=== PATIENT | female | born 1970 | race American Indian/Alaskan Native ===

== ENCOUNTER 2017-04-21 16:41 | Emergency (ER) | payer OTHER ==
[2017-04-21 18:50] LABS: Bilirubin,Urine NEG (Negative); Blood,Urine NEG (Negative); Ketones,Urine NEG (Negative); Leukocyte Esterase,Urine NEG (Negative); Mucus,Urine 2+ /HPF; Nitrite,Urine NEG (Negative); Protein,Urine <15 mg/dL mg/dL (Negative)
--- NOTE | 2017-04-21 21:09 | Emergency Department Report ---
ED Female HPI - General Chief complaint: Urogenital-Female Stated complaint: VAG DISCHARGE/ITCHING Time Seen by Provider: 04/21/17 20:27 Source: patient Mode of arrival: Ambulatory Limitations: No Limitations - History of Present Illness Initial comments: 46-year-old female past medical history recurrent BV presents with complaint of increased vaginal discharge. Denies any bleeding denies any abdominal pain states she has had BV 6 times within the last year. Denies any fever chills nausea or vomiting MD Complaint: vaginal discharge Onset/Timin -: days(s) Radiation: non-radiating, LLQ Improves with: none Are you Now?: No - Related Data Previous Rx's Medication Instructions Recorded Last Taken Type metroNIDAZOLE [Flagyl] 500 mg PO Q12HR #14 tab 09/18/16 Unknown Rx metroNIDAZOLE [Flagyl TAB] 500 mg PO Q12HR #14 tab 04/21/17 Unknown Rx Allergies Allergy/AdvReac Type Severity Reaction Status Date / Time erythromycin base Allergy Hives Verified 04/21/17 17:00 ED Review of Systems ROS: Stated complaint: VAG DISCHARGE/ITCHING Other details as noted in HPI Constitutional: denies: chills, fever Eyes: denies: eye pain, eye discharge, vision change ENT: denies: ear pain, throat pain Respiratory: denies: cough, shortness of breath, wheezing Cardiovascular: denies: chest pain, palpitations Endocrine: no symptoms reported Gastrointestinal: denies: abdominal pain, nausea, diarrhea Genitourinary: denies: urgency, dysuria, discharge Musculoskeletal: denies: back pain, joint swelling, arthralgia Skin: denies: rash, lesions Neurological: denies: headache, weakness, paresthesias Psychiatric: denies: anxiety, depression Hematological/Lymphatic: denies: easy bleeding, easy bruising ED Past Medical Hx - Past Medical History Previous Medical History?: No - Surgical History Additional Surgical History: C/S x3, Gastric bypass - Social History Smoking Status: Never Smoker Substance Use Type: Alcohol - Medications Home Medications: Home Medications Medication Instructions Recorded Confirmed Last Taken Type metroNIDAZOLE [Flagyl] 500 mg PO Q12HR #14 tab 09/18/16 Unknown Rx metroNIDAZOLE [Flagyl TAB] 500 mg PO Q12HR #14 tab 04/21/17 Unknown Rx ED Physical Exam - General Limitations: No Limitations General appearance: alert, in no apparent distress - Head Head exam: Present: atraumatic, normocephalic - Eye Eye exam: Present: normal appearance, PERRL, EOMI - ENT ENT exam: Present: mucous membranes moist - Neck Neck exam: Present: normal inspection, full ROM - Respiratory Respiratory exam: Present: normal lung sounds bilaterally. Absent: respiratory distress - Cardiovascular Cardiovascular Exam: Present: regular rate, normal rhythm. Absent: systolic murmur, diastolic murmur, rubs, gallop - GI/Abdominal GI/Abdominal exam: Present: soft, normal bowel sounds - External exam: Present: normal external exam Speculum exam: Present: vaginal discharge (whitish thick vaginal discharge) Bi-manual exam: Present: normal bi-manual exam - Extremities Exam Extremities exam: Present: normal inspection - Back Exam Back exam: Present: normal inspection, full ROM - Neurological Exam Neurological exam: Present: alert, oriented X3, CN II-XII intact, normal gait - Psychiatric Psychiatric exam: Present: normal affect, normal mood - Skin Skin exam: Present: warm, dry, intact, normal color. Absent: rash ED Course Vital Signs 04/21/17 17:00 Temperature 98.1 F Pulse Rate 70 Respiratory 16 Rate Blood Pressure 138/87 O2 Sat by Pulse 100 Oximetry ED Medical Decision Making - Medical Decision Making A/P: Vaginal discharge possible BV 1-did not visualize IUD string on exam so ultrasound was performed, IUD in place as per ultrasound 2-empiric treatment with Flagyl 3-f/u with [facility] Critical care attestation.: If time is entered above; I have spent that time in minutes in the direct care of this critically ill patient, excluding procedure time. ED Disposition Clinical Impression: Bacterial vaginal infection Disposition: - TO HOME OR SELFCARE Is pt being admited?: No Does the pt Need Aspirin: No Condition: Stable Instructions: Bacterial Vaginosis (ED) Prescriptions: metroNIDAZOLE [Flagyl TAB] 500 mg PO Q12HR #14 tab Referrals: [facility] [Provider Group] - 3-5 Days Forms: STI Treatment and Prevention, Work/School Release Form(ED) Time of Disposition: 22:58
--- NOTE | 2017-04-21 22:42 | Ultrasound Report ---
FINAL REPORT EXAM: US PELVIC COMPLETE HISTORY: ? IUD position TECHNIQUE: Real-time sonography was performed of the pelvis transabdominally and endovaginally. Images are submitted for interpretation. PRIORS: None. FINDINGS: There is an IUD in place in the lower uterine segment. There are cervical nabothian cysts. Otherwise, the uterus appears normal measuring 7.9 x 3.5 x 4.8 cm. The endometrial stripe measures 5 mm in thickness. Ovaries were not seen. There is no free pelvic fluid. IMPRESSION: IUD in the lower uterine segment.
--- NOTE | 2017-04-21 22:48 | Ultrasound Report ---
FINAL REPORT EXAM: US TRANSVAGINAL HISTORY: could not see IUD string, pt states she has IUD TECHNIQUE: Real-time sonography was performed of the pelvis transabdominally and endovaginally. Images are submitted for interpretation. PRIORS: None. FINDINGS: There is an IUD in place in the lower uterine segment. There are cervical nabothian cysts. Otherwise, the uterus appears normal measuring 7.9 x 3.5 x 4.8 cm. The endometrial stripe measures 5 mm in thickness. Ovaries were not seen. There is no free pelvic fluid. IMPRESSION: IUD in the lower uterine segment.
[2017-04-21 23:08] VITALS: BP 145/79
== END 2017-04-21 23:08 | disposition home or self-care (01) ==
LOC: ED 16:41
DX: N76.0 Acute vaginitis (principal); Z88.1 Allergy status to other antibiotic agents
CPT/HCPCS: 76830; 76856; 81001; 81025; 87210; 87591; 99284

== ENCOUNTER 2017-12-24 11:07 | Emergency (ER) | payer OTHER ==
[2017-12-24 11:19] VITALS: BP 126/75
--- NOTE | 2017-12-24 12:21 | Emergency Department Report ---
Chief Complaint: Urogenital-Female Stated Complaint: VAGINAL DISCHARGE Time Seen by Provider: 12/24/17 12:18 - HPI History of Present Illness: 47-year-old female presents to the emergency department with complaint of vaginal discharges been going on for the past 2 days. The day before that she had sex and the condom broke, which she thinks happens because of her IUD. She has a previous history of Trichomonas many years ago and has had bacterial vaginosis multiple times. She tried treating herself with a metronidazole suppository. She denies any fever, dysuria, vaginal bleeding or any pelvic pain. - ROS Review of Systems: Positive for vaginal discharge Negative for vaginal bleeding, dysuria, fever, nausea, vomiting or pelvic pain - Exam Vital Signs: Vital Signs 12/24/17 11:17 Temperature 99.1 F Pulse Rate 68 Respiratory 18 Rate Blood Pressure 126/75 O2 Sat by Pulse 97 Oximetry Physical Exam: Heart and lungs sounds are normal to auscultation. Patient is awake and alert and does not appear in any acute distress. MSE screening note: Focused history and physical exam performed. Due to findings the following was ordered: She will have a urinalysis and urine test. She will have a wet prep and diarrhea/chlamydia with a pelvic examination. ED Disposition for MSE Condition: Stable Referrals: [facility]IMARY CARE, [Primary Care Provider] - 3-5 Days
--- NOTE | 2017-12-24 13:43 | Emergency Department Report ---
ED Female HPI - General Chief complaint: Urogenital-Female Stated complaint: VAGINAL DISCHARGE Time Seen by Provider: 12/24/17 12:18 Source: patient Mode of arrival: Ambulatory Limitations: No Limitations - History of Present Illness Initial comments: This is a 47-year-old -[place] female who presents with vaginal discharge for 2 days. Patient is concerned of possibly having a STD. She had intercourse Wednesday night and the condom tear from IUD. They were able to pull the entire condom out and noticed a whole in it. She is denying pelvic and low back pain. She had discomfort with urination a few times. She is aware IUD will need to be removed this year. She will followup with [facility]. She used Monistat for 2 days prior to coming in for evaluation and symptoms got worse. MD Complaint: vaginal discharge -: days(s) (2 days) Location: labia Radiation: non-radiating Severity: mild Severity scale (0 -10): 0 Quality: other (itching and discomfort with urination) Consistency: intermittent Improves with: none Worsens with: urination Are you Now?: No Associated Symptoms: vaginal discharge. denies: denies other symptoms, vaginal bleeding, abdominal pain, nausea/vomiting, fever/chills, headaches, loss of appetite, dysuria, hematuria, rash, seizure, shortness of breath, syncope, weakness - Related Data Sexually active: Yes Previous Rx's Medication Instructions Recorded Last Taken Type metroNIDAZOLE [Flagyl] 500 mg PO Q12HR #14 tab 09/18/16 Unknown Rx metroNIDAZOLE [Flagyl TAB] 500 mg PO Q12HR #14 tab 04/21/17 Unknown Rx metroNIDAZOLE [Metronidazole] 500 mg PO BID 7 Days #14 tablet 12/24/17 Unknown Rx Allergies Allergy/AdvReac Type Severity Reaction Status Date / Time erythromycin base Allergy Hives Verified 12/24/17 11:17 ED Review of Systems ROS: Stated complaint: VAGINAL DISCHARGE Other details as noted in HPI Constitutional: denies: chills, fever Respiratory: denies: cough, shortness of breath, wheezing Cardiovascular: denies: chest pain, palpitations, edema, syncope Gastrointestinal: denies: abdominal pain, nausea, vomiting, diarrhea Genitourinary: discharge (white thick discharge). denies: urgency, dysuria, frequency, hematuria Neurological: denies: headache, weakness, paresthesias Psychiatric: denies: anxiety, depression ED Past Medical Hx - Past Medical History Previous Medical History?: No - Surgical History Additional Surgical History: C/S x3, Gastric bypass - Social History Smoking Status: Never Smoker Substance Use Type: Alcohol - Medications Home Medications: Home Medications Medication Instructions Recorded Confirmed Last Taken Type metroNIDAZOLE [Flagyl] 500 mg PO Q12HR #14 tab 09/18/16 Unknown Rx metroNIDAZOLE [Flagyl TAB] 500 mg PO Q12HR #14 tab 04/21/17 Unknown Rx metroNIDAZOLE [Metronidazole] 500 mg PO BID 7 Days #14 tablet 12/24/17 Unknown Rx ED Physical Exam - General Limitations: No Limitations General appearance: alert, in no apparent distress, obese - Respiratory Respiratory exam: Present: normal lung sounds bilaterally. Absent: respiratory distress - Cardiovascular Cardiovascular Exam: Present: regular rate, normal rhythm, normal heart sounds. Absent: systolic murmur, diastolic murmur, rubs, gallop - GI/Abdominal GI/Abdominal exam: Present: soft, normal bowel sounds. Absent: organomegaly, mass - External exam: Present: normal external exam. Absent: erythema, swelling, lesions, lacerations, ecchymosis, bleeding Speculum exam: Present: vaginal discharge (thin white discharge, no odor). Absent: erythema, cervical discharge, vaginal bleeding, foreign body, tissue, laceration Bi-manual exam: Present: normal bi-manual exam - Neurological Exam Neurological exam: Present: alert, oriented X3, normal gait - Psychiatric Psychiatric exam: Present: normal affect, normal mood - Skin Skin exam: Present: warm, dry, intact, normal color. Absent: rash ED Course Vital Signs 12/24/17 11:17 Temperature 99.1 F Pulse Rate 68 Respiratory 18 Rate Blood Pressure 126/75 O2 Sat by Pulse 97 Oximetry ED Medical Decision Making - Medical Decision Making This is a 47 y.o. female presents with vaginal discharge and STD exposure for 2 days. Patient was examined by me. Obtained wet prep via pelvic exam, results positive for bacterial vaginitis. Pending G/C culture. Discussed results with patient. Patient request to be empirically treated for STD. Given azithromycin 1 g po and rocephin 250 mg IM once in ER. Discharged home in stable condition. Start metronidazole 500 mg po bid x 7 days. Discussed prevention options. F/U with PCP or Health Department. Critical care attestation.: If time is entered above; I have spent that time in minutes in the direct care of this critically ill patient, excluding procedure time. ED Disposition Clinical Impression: Exposure to STD, Bacterial vaginosis Disposition: TO HOME OR SELFCARE Is pt being admited?: No Does the pt Need Aspirin: No Condition: Stable Instructions: Bacterial Vaginosis (ED) Additional Instructions: Complete the full course of antibiotics as prescribed. Avoid drinking alcohol while taking antibiotics and for 24 hours after completion of antibiotics. Continue safe sexual intercourse. Follow up with Primary Care Provider or health department for full screening. Prescriptions: metroNIDAZOLE [Metronidazole] 500 mg PO BID 7 Days #14 tablet Forms: STI Treatment and Prevention Time of Disposition: 14:32 Print Language: SLOV[place]
[2017-12-24] MEDS ORDERED: ZITHROMAX PO ONE (14:32)
[2017-12-24] MEDS ORDERED: XYLOCAINE 1% MPF 5 mL INFILTRATI ONE (14:32)
[2017-12-24] MEDS ORDERED: ROCEPHIN IM ONE (14:32)
[2017-12-24 16:57] LABS: Bilirubin,Urine NEG (Negative); Blood,Urine NEG (Negative); Color,Urine Yellow (Yellow); Mucus,Urine FEW /HPF; Protein,Urine <15 mg/dL mg/dL (Negative); Urobilinogen,Urine < 2.0 mg/dL (<2.0)
[2017-12-24 16:59] LABS: HCG Qualitative,Urine Negative (Negative)
== END 2017-12-24 14:45 | disposition home or self-care (01) ==
LOC: ED 11:07
DX: N76.0 Acute vaginitis (principal); Z88.1 Allergy status to other antibiotic agents
CPT/HCPCS: 81001; 81025; 87210; 87591; 96372; 99284; J0696